=== PATIENT | male | born 1945 | race Caucasian/White ===

== ENCOUNTER 2017-08-08 00:51 | Observation (INO) | payer OTHER ==
--- NOTE | 2017-08-08 01:03 | CPEKG ---
Heart Rate: 140 RR Interval: 429 P-R Interval: 132 QRSD Interval: 92 QT Interval: 296 QTC Interval: 452 P [place]: -85 QRS [place]: 73 T Wave [place]: 255 EKG Severity - ABNORMAL ECG - EKG Impression: Atrial flutter EKG Impression: ECTOPIC ATRIAL TACHYCARDIA EKG Impression: REPOL ABNRM SUGGESTS ISCHEMIA, DIFFUSE LEADS Electronically Signed By: Jenny Boateng 08-Aug-2017 06:35:30
[2017-08-08] MEDS ORDERED: NS 500 ML IV ONE (01:06)
[2017-08-08] MEDS ORDERED: ADENOSINE 6 MG/2 ML VIAL IVP ONE (01:06)
[2017-08-08 01:25] LABS: PLATELET COUNT 178 10^3/uL (150-400)
--- NOTE | 2017-08-08 01:27 | EDPHY ---
H & P Stated Complaint: Heart palpatations, chest discomfort Time Seen by Provider: 08/08/17 01:06 HPI/ROS: HPI The patient presents with palpitations that awoke him from sleep at about 11:45 p.m. Tonight. They have been constant ever since, they are moderate in severity. He developed right arm pain with these and was concerned so he came into the emergency department. He has taken aspirin prior to arrival. He has no prior history of similar. About 1 year ago he was diagnosed with hypertrophic cardiomyopathy within the [facility]. He is not on any medications for this and had a normal exercise stress test he says. He did fly from [place] to [place] yesterday.. REVIEW OF SYSTEMS Constitutional: No fever, no chills. Eyes: No discharge. ENT: No sore throat. Cardiovascular: No chest pain, no palpitations. Respiratory: No cough, no shortness of breath. Gastrointestinal: No abdominal pain, no vomiting. Genitourinary: No hematuria. Musculoskeletal: No back pain. Skin: No rashes. Neurological: No headache. PMHx: Hypertrophic cardiomyopathy Soc Hx: No tobacco use PHYSICAL General Appearance: Alert, no distress Eyes: Pupils equal and round no pallor or injection ENT, Mouth: Mucous membranes moist Respiratory: There are no retractions, lungs are clear to auscultation Cardiovascular: Tachycardic rate Gastrointestinal: Abdomen is soft and non-tender, no masses, bowel sounds normal Neurological: A&O, moves all extremities Skin: Warm and dry, no rashes Musculoskeletal: Neck is supple non tender Extremities: symmetrical, full range of motion Psychiatric: Patient is oriented X 3, there is no agitation Source: Patient Exam Limitations: No limitations - Personal History Current Tetanus Diphtheria and Acellular Pertussis (TDAP): No - Medical/Surgical History Hx Asthma: No Hx Chronic Respiratory Disease: No Hx Diabetes: No Hx Cardiac Disease: No Hx Renal Disease: No Hx Cirrhosis: No Hx Alcoholism: No Hx HIV/AIDS: No Hx Splenectomy or Spleen Trauma: No Other PMH: denies - Social History Smoking Status: Never smoked Constitutional: Initial Vital Signs Temperature (C) 36.4 C 08/08/17 00:52 Heart Rate 134 H 08/08/17 00:52 Respiratory Rate 20 08/08/17 00:52 Blood Pressure 171/108 H 08/08/17 00:52 O2 Sat (%) 98 08/08/17 00:52 O2 Delivery Mode Room Air Allergies/Adverse Reactions: No Known Allergies Allergy (Unverified 08/08/17 00:51) Home Medications: Medication Instructions Recorded Aspirin 81mg (*) 08/08/17 Medical Decision Making - Diagnostics EKG Interpretation: EKG: Complete interpretation has been separately recorded in the [facility] archive. Summary impression: Probable a flutter with 2-1 conduction delay Repeat EKG demonstrates normal sinus rhythm with T-wave inversions in lateral leads. Imaging Results: Chest x-ray two view shows no cardiomegaly, no infiltrate, interpreted by me, radiology interpretation is pending. Imaging: I viewed and interpreted images myself Differential Diagnosis: This is a 71-year-old male with hypertrophic cardiomyopathy who presents from home with palpitations since [facility] [facility] Initial EKG shows SVT at rate of 140. He has right-sided arm pain with this with no other symptoms. He has no prior history of similar. He took an aspirin prior to arrival. Differential diagnosis includes SVT due to atrial fibrillation, pulmonary embolism, sepsis, ACS. Patient given adenosine in the emergency department which successfully slowed his rate. Tracing reveals what appears to be atrial flutter versus atrial fibrillation. Repeat EKG shows normal sinus rhythm. Patient's arm pain improved. Initial laboratory testing was unremarkable except for slightly elevated BNP. I contacted [facility] and discussed the case with the valve grinder material control clerk. She recommends metoprolol upon discharge. Patient's repeat troponin, for 3 hr from onset of pain and palpitations is slightly elevated. This could be myocardial strain from his episode of atrial flutter with RVR. It is also possible that he is suffering from ACS. I obtained an old EKG from [facility] and the T-wave inversions which are present are unchanged from his prior. This is reassuring. I have discussed the case with the hospitalist Dr. Jennings and we will plan to admit him to cycle his troponins. - Data Points Laboratory Results: Laboratory Results 08/08/17 01:08 08/08/17 01:08 08/08/17 08/08/17 08/08/17 03:01 01:08 01:08 WBC RBC Hgb Hct MCV MCH MCHC RDW Plt Count MPV Neut % (Auto) Lymph % (Auto) [place] % (Auto) Eos % (Auto) Baso % (Auto) Nucleat RBC Rel Count Absolute Neuts (auto) Absolute Lymphs (auto) Absolute Monos (auto) Absolute Eos (auto) Absolute Basos (auto) Absolute Nucleated RBC Immature Gran % Immature Gran # D-Dimer 0.34 ug/mLFEU ug/mLFEU (0.00-0.50) Sodium 142 mEq/L mEq/L (135-145) Potassium 4.1 mEq/L mEq/L (3.5-5.2) Chloride 104 mEq/L mEq/L (97-110) Carbon Dioxide 24 mEq/l mEq/l (22-31) Anion Gap 14 mEq/L mEq/L (8-16) BUN 25 mg/dL H mg/dL (7-23) Creatinine 0.9 mg/dL mg/dL (0.7-1.3) Estimated GFR > 60 Glucose 79 mg/dL mg/dL (70-100) Calcium 9.8 mg/dL mg/dL (8.5-10.4) Magnesium 1.8 mg/dL mg/dL (1.6-2.3) Troponin I 0.047 ng/mL H ng/mL < 0.012 ng/mL ng/mL (0.000-0.034) (0.000-0.034) NT-Pro-B Natriuret Pep 236 pg/mL H pg/mL (0-125) 08/08/17 01:08 WBC 7.90 10^3/uL 10^3/uL (3.80-9.50) RBC 5.58 10^6/uL 10^6/uL (4.40-6.38) Hgb 17.2 g/dL g/dL (13.7-17.5) Hct 50.0 % % (40.0-51.0) MCV 89.6 fL fL (81.5-99.8) MCH 30.8 pg pg (27.9-34.1) MCHC 34.4 g/dL g/dL (32.4-36.7) RDW 13.7 % % (11.5-15.2) Plt Count 178 10^3/uL 10^3/uL (150-400) MPV 9.4 fL fL (8.7-11.7) Neut % (Auto) 57.8 % % (39.3-74.2) Lymph % (Auto) 31.6 % % (15.0-45.0) [place] % (Auto) 6.7 % % (4.5-13.0) Eos % (Auto) 3.0 % % (0.6-7.6) Baso % (Auto) 0.5 % % (0.3-1.7) Nucleat RBC Rel Count 0.0 % % (0.0-0.2) Absolute Neuts (auto) 4.56 10^3/uL 10^3/uL (1.70-6.50) Absolute Lymphs (auto) 2.50 10^3/uL 10^3/uL (1.00-3.00) Absolute Monos (auto) 0.53 10^3/uL 10^3/uL (0.30-0.80) Absolute Eos (auto) 0.24 10^3/uL 10^3/uL (0.03-0.40) Absolute Basos (auto) 0.04 10^3/uL 10^3/uL (0.02-0.10) Absolute Nucleated RBC 0.00 10^3/uL 10^3/uL (0-0.01) Immature Gran % 0.4 % % (0.0-1.1) Immature Gran # 0.03 10^3/uL 10^3/uL (0.00-0.10) D-Dimer Sodium Potassium Chloride Carbon Dioxide Anion Gap BUN Creatinine Estimated GFR Glucose Calcium Magnesium Troponin I NT-Pro-B Natriuret Pep Medications Given: Discontinued Medications Adenosine (Adenosine) 6 mg IVP EDNOW ONE Stop: 08/08/17 01:07 Last Admin: 08/08/17 01:55 Dose: 6 mg Sodium Chloride (Ns) 500 mls @ 1,000 mls/hr IV EDNOW ONE PRN Reason: Protocol Stop: 08/08/17 01:35 Last Admin: 08/08/17 01:55 Dose: 500 mls Departure - Departure Disposition: [facility] Acute Clinical Impression: Atrial flutter with rapid ventricular response, Elevated troponin I level, Hypertrophic cardiomyopathy Condition: Fair
[2017-08-08] MEDS ORDERED: LORazepam 0.5 MG TAB PO PRN (04:18)
[2017-08-08] MEDS ORDERED: ACETAMINOPHEN 325 MG TAB PO PRN (04:18)
[2017-08-08] MEDS ORDERED: HYDROCODONE/APAP 5/325 TAB PO PRN (04:18)
[2017-08-08] MEDS ORDERED: ONDANSETRON 4 MG/2 ML VIAL IVP PRN (04:18)
[2017-08-08] MEDS ORDERED: NITROGLYCERIN 0.4 MG BTL SL PRN (04:24)
--- NOTE | 2017-08-08 04:33 | PDGENHP ---
History and Physical - Chief Complaint Palpitations, right arm pain - History of Present Illness Source-patient provides history appears reliable. EMR was reviewed and case discussed with ED provider. HPI - pleasant 71-year-old gentleman with past medical history significant for apical hypertrophic cardiomyopathy, hypothyroidism, BPH, glaucoma who presents emergency department with complaints of palpitations waking him from sleep. Patient's symptoms started just prior to midnight. He developed also some right -sided arm pain. Denies any chest pain, shortness of breath, lightheadedness. Patient without any recent complaints of orthopnea, lower extremity edema, PND. Patient has had a full evaluation through [facility] including stress test, echocardiogram and follow up with Cardiology. Patient did take 3 x 81mg aspirin prior to arrival in the emergency department. b In the ED, patient was noted to be tachycardic which appeared to be SVT. He was given a dose of adenosine and monitored. Rhythm appeared to be atrial flutter before patient converted back to normal sinus rhythm. Patient continued to have some complaints of right arm pain and a troponin was evaluated and found to be minimally elevated above upper limits of normal on repeat. His symptoms have completely resolved at this time. History Information - Allergies/Home Medication List Allergies/Adverse Reactions: No Known Allergies Allergy (Unverified 08/08/17 00:51) Home Medications: Aspirin 81mg (*) 08/08/17 [Last Taken 08/08/17] I have personally reviewed and updated: family history, medical history, social history, surgical history - Past Medical History Additional medical history: Apical hypertrophic cardiomyopathy. - Surgical History Additional surgical history: Bladder stone removal - Family History Additional family history: No sudden cardiac . Mother was lung cancer, father strep pneumonia and young age, half sister with history CAD and DE age 73 - Social History Smoking Status: Never smoked Alcohol Use: Occasionally (5 times weekly) Drug Use: None Additional social history: Patient lives significant other. He has 5 drinks of vodka weekly. He denies any illicit drugs or tobacco use. Cor status full Review of Systems Review of Systems: ROS: 10pt was reviewed & negative except for what was stated in HPI & below Constitutional: Reports: weight loss (10 lb intentional weight loss with dieting ). Denies: chills, fever EENMT: Denies: nose congestion, sore throat Cardiac: Reports: lightheadedness, palpitations. Denies: chest pain, edema, syncope Respiratory: Denies: orthopnea, shortness of breath Gastrointestinal: Denies: vomitting, abdominal pain, nausea Genitourinary: Reports: frequency (Chronic due to BPH). Denies: dysuria, hematuria Muscolosketal: Denies: back pain, muscle stiffness Skin: Reports: no symptoms Neurological: Denies: anxiety, weakness Physical Exam Physical Exam: Selected Entries 08/08/17 00:52 Blood Pressure Automatic Method Heart Rate 134 H Respiratory 20 Rate O2 Sat (%) 98 Temperature (C) 36.4 C Blood Pressure 171/108 H Mean Arterial 129 H Pressure (MAP) O2 Delivery Room Air Mode Temperature Oral Source Temp Pulse Resp BP Pulse Ox 36.4 C 54 L 16 114/63 93 08/08/17 00:52 08/08/17 03:50 08/08/17 03:50 08/08/17 03:50 08/08/17 03:50 Constitutional: no apparent distress, not in pain, other (NAD. Pleasant adult gentleman is resting quietly on gurney.) Eyes: PERRL, anicteric sclera, EOMI Ears, Nose, Mouth, Throat: no oral mucosal ulcers, No poor dentition, No dry mucous membranes Cardiovascular: regular rate and rhythym, no murmur, rub, or gallop, No tachycardia, No edema Peripheral Pulses: 2+: dorsalis-pedis (R), dorsalis-pedis (L) Respiratory: no respiratory distress, no rales or rhonchi, clear to auscultation Gastrointestinal: normoactive bowel sounds, soft, non-tender abdomen, no palpable masses, No distension Genitourinary: no bladder tenderness, No moore in urethra Skin: warm, normal color, no rashes or abrasions Musculoskeletal: full muscle strength, no muscle tenderness, normal joint ROM, other (Patient able to sit up independently), No generalized weakness Neurologic: AAOx3, CN II-XII Intact, No weakness, No numbness Psychiatric: interacting appropriately, not anxious, not encephalopathic, thought process linear Lab Data & Imaging Review 08/08/17 01:08 08/08/17 01:08 WBC 7.90 10^3/uL (3.80-9.50) 08/08/17 01:08 RBC 5.58 10^6/uL (4.40-6.38) 08/08/17 01:08 Hgb 17.2 g/dL (13.7-17.5) 08/08/17 01:08 Hct 50.0 % (40.0-51.0) 08/08/17 01:08 MCV 89.6 fL (81.5-99.8) 08/08/17 01:08 MCH 30.8 pg (27.9-34.1) 08/08/17 01:08 MCHC 34.4 g/dL (32.4-36.7) 08/08/17 01:08 RDW 13.7 % (11.5-15.2) 08/08/17 01:08 Plt Count 178 10^3/uL (150-400) 08/08/17 01:08 MPV 9.4 fL (8.7-11.7) 08/08/17 01:08 Neut % (Auto) 57.8 % (39.3-74.2) 08/08/17 01:08 Lymph % (Auto) 31.6 % (15.0-45.0) 08/08/17 01:08 [place] % (Auto) 6.7 % (4.5-13.0) 08/08/17 01:08 Eos % (Auto) 3.0 % (0.6-7.6) 08/08/17 01:08 Baso % (Auto) 0.5 % (0.3-1.7) 08/08/17 01:08 Nucleat RBC Rel Count 0.0 % (0.0-0.2) 08/08/17 01:08 Absolute Neuts (auto) 4.56 10^3/uL (1.70-6.50) 08/08/17 01:08 Absolute Lymphs (auto) 2.50 10^3/uL (1.00-3.00) 08/08/17 01:08 Absolute Monos (auto) 0.53 10^3/uL (0.30-0.80) 08/08/17 01:08 Absolute Eos (auto) 0.24 10^3/uL (0.03-0.40) 08/08/17 01:08 Absolute Basos (auto) 0.04 10^3/uL (0.02-0.10) 08/08/17 01:08 Absolute Nucleated RBC 0.00 10^3/uL (0-0.01) 08/08/17 01:08 Immature Gran % 0.4 % (0.0-1.1) 08/08/17 01:08 Immature Gran # 0.03 10^3/uL (0.00-0.10) 08/08/17 01:08 D-Dimer 0.34 ug/mLFEU (0.00-0.50) 08/08/17 01:08 Sodium 142 mEq/L (135-145) 08/08/17 01:08 Potassium 4.1 mEq/L (3.5-5.2) 08/08/17 01:08 Chloride 104 mEq/L (97-110) 08/08/17 01:08 Carbon Dioxide 24 mEq/l (22-31) 08/08/17 01:08 Anion Gap 14 mEq/L (8-16) 08/08/17 01:08 BUN 25 mg/dL (7-23) H 08/08/17 01:08 Creatinine 0.9 mg/dL (0.7-1.3) 08/08/17 01:08 Estimated GFR > 60 08/08/17 01:08 Glucose 79 mg/dL (70-100) 08/08/17 01:08 Calcium 9.8 mg/dL (8.5-10.4) 08/08/17 01:08 Magnesium 1.8 mg/dL (1.6-2.3) 08/08/17 01:08 Troponin I 0.047 ng/mL (0.000-0.034) H 08/08/17 03:01 NT-Pro-B Natriuret Pep 236 pg/mL (0-125) H 08/08/17 01:08 Imaging Review: Chest x-ray reviewed myself. Report is pending. No acute infiltrates or processes appreciated. Echocardiogram from 2017 reviewed. Report was provided by the patient noting LVEF of 70% and apical hypertrophic cardiomyopathy without any commentary on any outflow obstruction. Visualized and Interpreted Chest x-ray results: Yes Visualized and Interpreted EKG results: Yes EKG additional interpertation: Initial EKG in the ED showed atrial tachycardia in the 130s with T-wave inversions and ST depressions in multiple leads. On tracings reviewed during which time patient received adenosine showing atrial fibrillation and subsequently converted to normal sinus rhythm. EKG dated 07/21 from outside facility compared showing normal sinus rhythm in the 50s with persistent ST depressions and T-wave inversions in numerous leads in the inferolateral leads are similar. Assessment & Plan Assessment: 71-year-old gentleman who presents with complaints of palpitations Atrial fibrillation/atrial flutter-patient converted status post dosing of adenosine. He does have a history of hypothyroidism with question of regular supplementation. Will check a TSH and remainder TFTs. Patient reports that time he does fluid restrict secondary to history of BPH but does not appear to be volume contracted. Echocardiogram will be ordered for this morning. Cardiology consultation and discussion as per day team. Elevated troponin-minimally elevated and likely secondary to troponin leak in setting of tachycardia. Patient has not had any chest pain although he did report some right arm achiness his symptoms are currently all resolved. Patient with stable EKG changes compared to 2017 with exception of the new atrial fibrillation now in normal sinus rhythm. Will check and repeat troponin. Patient reports he already took a full-dose aspirin. Apical hypertrophic cardiomyopathy-patient with a previous cardiac evaluation in 2017 including echocardiogram with results as noted above, stress testing, Holter monitor, cardiac MRI imaging. He has no evidence of outflow obstruction. He is not on any beta-lori at this time. His primary rn hospice is Dr. Esparza with [facility]. Hypothyroidism-Will check TFTs. Continue patient's levothyroxine at 100 mcg p. O. Daily per his report. BPH-continue patient's Flomax. Glaucoma-resume any drops. FEN - diet as tolerated. Electrolyte replacement if needed. Holding IV fluids. PPX-SCDs. Anticipate short hospital stay holding anticoagulation at this time pending Cardiology recommendations in setting of new onset AFib. Cor-full Disposition-patient has been admitted to observation status as he is now in a sinus rhythm pending cardiac evaluation as noted above to the PCU floor. .
[2017-08-08] MEDS ORDERED: ENOXAPARIN 40 MG/0.4 ML SYR SC SCH (09:00)
[2017-08-08] MEDS ORDERED: NON-FORMULARY NEW DRUG (Fluticasone Nasal [Flonase Nasal Spray] 1 SPRAYS) NASAL PRN (11:14)
[2017-08-08] MEDS ORDERED: LEVOTHYROXINE 100 MCG TAB PO SCH (11:15)
--- NOTE | 2017-08-08 11:25 | CPEKG ---
Heart Rate: 126 RR Interval: 476 QRSD Interval: 88 QT Interval: 348 QTC Interval: 504 QRS [place]: 79 T Wave [place]: 260 EKG Severity - ABNORMAL ECG - EKG Impression: ATRIAL FIBRILLATION, V-RATE 66-156 EKG Impression: REPOL ABNRM, PROBABLE ISCHEMIA, DIFFUSE LEADS EKG Impression: PROLONGED QT INTERVAL Preliminary Awaiting MD Review
--- NOTE | 2017-08-08 11:38 | ECHO ---
[email or web address] [address] Main: [phone] Fax: Transthoracic Echocardiogram Name: FRED GRIFFITHS MR#: [id number] Study Date: 08/08/2017 Study Time: 10:28 AM Date of : 1945 Age: 71 year(s) Height: 175.3 cm (69 in.) Weight: 83.92 kg (185 lb.) BSA: 2 m2 Gender: Male Examination: Echo Indication: New onset Atrial Fibrillation, now NSR Image Quality: Contrast: Requested by: Gabbi Graham BP: 107 mmHg/73 mmHg Heart Rate: Rhythm: Normal sinus rhythm Indication: New onset Atrial Fibrillation, now NSR Procedure Staff In Mold Coater: Nik Bower RDCS Reading Physician: Hill Carroll MD Requesting Provider: Conclusions: no pericardial effusion. Apical hypertrophic cardiomyopathy. Ejection fraction 73%. Mild to moderate aortic regurgitation. Measurements: Chambers Valvular Assessment AV/MV Valvular Assessment TV/PV Normal Normal Normal Name Value Range Name Value Range Name Value Range Ao Leanne (MM): 3.1 cm (2.2 cm-3.7 LVOT Vmax: 0.96 m/s (0.7 m/s-1.1 PV Vmax: 0.90 m/s (0.6 m/s-0.9 cm) m/s) m/s) IVSd (2D): 0.9 cm (0.6 cm-1.1 AR (PHT): 655 ms ( - ) PV PGmax: 3 mmHg ( - ) cm) MV E Vmax: 0.81 m/s ( - ) LVDd (2D): 4.3 cm (4.2 cm-5.9 MV A Vmax: 0.46 m/s ( - ) cm) MV E/A: 1.76 ( - ) LVDs (2D): 2.5 cm (2.1 cm-4 MV meanP mmHg ( - ) cm) LVPWd (2D): 1.0 cm (0.6 cm-1 cm) LVOTd 2.0 cm 2.0 cm mm LVEF (2D): 73 (>=54 %) Continued Measurements: Chambers Valvular Assessment AV/MV Name Value Name Value LADs Lon.9 cm MV E' Septal: 0.06 m/s LA Area: 15.9 cm2 MV E/E' Septal: 13.30 LA Volume: 45 ml MV E/E' Lateral: 14.60 LA Volume Index: 22.5 ml/m2 MV VTI: 22.60 cm AR Vmax: 4.23 cm/s AR ERO: 0.140 cm2 Patient: FRED GRIFFITHS Study Date: 08/08/2017 Page 1 of 2 10:28 AM AR PISA radius: 0.5 cm AR Reg. Volume: 41.0 ml AR VTI: 296.0 cm Findings: Left Ventricle: Normal size left ventricle. Normal global systolic LV function. EF is 73 %. There is apical cavity obliteration of the distal 1/3 of the LV with mild wall thicknessess noted.. Right Ventricle: Normal size right ventricle. Normal RV function. Left Atrium: The left atrium is normal in size. Right Atrium: The right atrium is normal in size. Mitral Valve: The mitral valve is normal in appearance and function. There is no mitral valve regurgitation. No mitral stenosis is present. Aortic Valve: The aortic valve is tri-leaflet. Mild to moderate aortic valve regurgitation. Tricuspid Valve: The tricuspid valve is normal in appearance and function. Pulmonic Valve: The pulmonic valve is normal in appearance and function. Aorta: The aorta is normal. Pericardium: No pericardial effusion. (No Signature Object) Patient: FRED GRIFFITHS Study Date: 08/08/2017 Page 2 of 2 10:28 AM [id number]
--- NOTE | 2017-08-08 11:42 | CPEKG ---
Heart Rate: 61 RR Interval: 984 P-R Interval: 152 QRSD Interval: 94 QT Interval: 436 QTC Interval: 440 P [place]: 42 QRS [place]: 57 T Wave [place]: 134 EKG Severity - ABNORMAL ECG - EKG Impression: SINUS RHYTHM EKG Impression: REPOL ABNRM SUGGESTS ISCHEMIA, ANT-LAT LEADS Preliminary Awaiting MD Review
[2017-08-08] MEDS ORDERED: FLUTICASONE NASAL 120 SPRAYS/16 GM MDI EACHNARE PRN (11:56)
[2017-08-08 15:36] VITALS: RESP 16; TEMP 98.7; O2SAT 94
[2017-08-08] MEDS ORDERED: METOPROLOL SUCCINATE XR 25 MG TAB PO ONE (16:34)
[2017-08-08] MEDS ORDERED: RIVAROXABAN 20 MG TAB PO ONE (16:35)
[2017-08-08 17:35] VITALS: BP 119/65; PULSE 68
--- NOTE | 2017-08-08 17:35 | PDDCSUM ---
Discharge Summary Discharge Summary: DISCHARGE SUMMARY FOLLOW-UP ITEMS: Determine method of CVA prevention and rhina blocking agent Adjust Synthroid dosage DATE OF ADMISSION: 08/07/2017 DATE OF DISCHARGE: 08/08/2017 DISCHARGE DIAGNOSES: 1. Acute atrial flutter with rapid ventricular response 2. Apical hypertrophic cardiomyopathy 3. Acute demand ischemia 4. Hypothyroidism CONSULTATIONS: Cardiology PROCEDURES / IMAGING: Echocardiogram demonstrating apical hypertrophic cardiomyopathy with preserved ejection fraction CHIEF COMPLAINT: Acute palpitation SUBJECTIVE: Patient is feeling well at time of discharge, he is not experiencing recurrence of symptoms, he denies any chest pain PHYSICAL EXAM ON DISCHARGE: Systolic blood pressure is 110, heart rate 50-60, afebrile overnight, satting on room air, heart rhythm is regular, lungs are clear to auscultation bilaterally, alert awake oriented x3, no lower extremity edema LABS ON DISCHARGE: D-dimer negative, TSH 7.4, BNP 230, troponin 0.5, creatinine 0.9, potassium 4.1 , hemoglobin 17.2 HOSPITAL COURSE BY PROBLEM: The patient presented with acute palpitations which were symptomatic of atrial flutter and acute rapid ventricular response. This was a new diagnosis for the patient and it was identified after the patient received adenosine in the emergency department. After receiving the adenosine, the patient chemically cardioverted into a normal sinus mechanism. The patient was monitored on telemetry and maintained in normal sinus mechanism thereafter. He had an echocardiogram which demonstrated apical hypertrophic cardiomyopathy and preserved ejection fraction, similar to his most recent echocardiogram. He did have some acute demand ischemia in the setting of his rapid ventricular response , and after his troponin level peaked at 0.6, down trended 0.5 at time of discharge. He did not have any chest pain which was indicative of ongoing ischemia. I discussed his case with Cardiology, and they recommended beta- lori rhina therapy as well as systemic anticoagulation. The patient received metoprolol succinate 25 mg at approximately 5:00 p.m. On 08/08, as well as Xarelto 20 mg at the same time. The patient has a follow-up appointment with [facility] tomorrow at 2:00 p.m., and he will discuss the above, reassess whether he should be on aspirin or systemic anticoagulation for stroke prevention, as well as rhina blocking therapy. He should also follow up with his primary care provider regarding his Synthroid dosing. DISCHARGE MEDICATIONS: Please see official discharge medication reconciliation sheet in chart , continue home medications with the addition of metoprolol succinate 25 mg once daily. I recommended that the patient hold his aspirin tonight since he has received Xarelto, and then reconvene with his cardiology provider tomorrow regarding stroke prevention with either aspirin or systemic anticoagulation. DISCHARGE INSTRUCTIONS: Follow-up with Dr. Esparza tomorrow as scheduled.
[2017-08-08] MEDS ORDERED: DORZOLAMIDE/TIMOLOL 10 ML OPHT.BTL EACHEYE SCH (21:00)
[2017-08-08] MEDS ORDERED: DORZOLAMIDE EACHEYE SCH (21:00)
[2017-08-08] MEDS ORDERED: FATTY ACIDS PO SCH (21:00)
[2017-08-08] MEDS ORDERED: NON-FORMULARY NEW DRUG (Multivitamins [Multivitamin (*)] 1 EACH) PO SCH (21:00)
[2017-08-08] MEDS ORDERED: TIMOLOL EACHEYE SCH (21:00)
[2017-08-08] MEDS ORDERED: TRAVOPROST Z 0.004% 2.5 ML OPHT.BTL EACHEYE SCH (21:00)
[2017-08-08] MEDS ORDERED: NON-FORMULARY NEW DRUG (Aspirin [Aspirin 81mg (*)] 81 MG) PO SCH (21:00)
[2017-08-08] MEDS ORDERED: MULTIVITAMINS 1 EACH TAB PO SCH (21:00)
[2017-08-08] MEDS ORDERED: OMEGA PO SCH (21:00)
[2017-08-08] MEDS ORDERED: TAMSULOSIN HCL 0.4 MG CAP PO SCH (21:00)
[2017-08-08] MEDS ORDERED: OMEGA-3 FATTY ACIDS 1,000 MG CAP PO SCH (21:00)
[2017-08-08] MEDS ORDERED: ASPIRIN 81 MG CHEWABLE TAB PO SCH (21:00)
[2017-08-08] MEDS ORDERED: TRAVOPROST Z 0.004% EACHEYE SCH (21:00)
== END 2017-08-08 18:05 | disposition home or self-care (01) ==
LOC: F2W 08:55
PROVIDERS: ADMIT Family Medicine; ATTEND Internal Medicine
DX: I48.92 Unspecified atrial flutter (principal); I48.91 Unspecified atrial fibrillation; I42.2 Other hypertrophic cardiomyopathy; E86.9 Volume depletion, unspecified; I24.8 Other forms of acute ischemic heart disease; R79.89 Other specified abnormal findings of blood chemistry; E03.9 Hypothyroidism, unspecified; N40.0 Benign prostatic hyperplasia without lower urinary tract symptoms; H40.9 Unspecified glaucoma; Z79.82 Long term (current) use of aspirin; Z82.49 Family history of ischemic heart disease and other diseases of the circulatory system
CPT/HCPCS: 71046; 93005; 93306; 96361; 96374; 99285; G0378; J0153; J1650; 84480-90